=== PATIENT | female | born 1960 | race Caucasian/White ===

== ENCOUNTER 2022-04-17 07:29 | Outpatient (CLI) | payer OTHER ==
[~2022-04-17 07:29] MED LIST: CLONAZEPAM2 MG; PRISTIQ ER50 MG; SEROQUEL50 MG; WELLBUTRIN75 MG
== END 2022-04-17 07:36 | disposition home or self-care (01) ==
LOC: LAB 07:29
PROVIDERS: ATTEND Internal Medicine Hematology & Oncology
DX: D50.8 Other iron deficiency anemias (principal); R79.9 Abnormal finding of blood chemistry, unspecified; I10 Essential (primary) hypertension; R74.02 Elevation of levels of lactic acid dehydrogenase [LDH]; K76.89 Other specified diseases of liver; C56.9 Malignant neoplasm of unspecified ovary; R97.8 Other abnormal tumor markers; R97.1 Elevated cancer antigen 125 [CA 125]; R97.0 Elevated carcinoembryonic antigen [CEA]; C54.1 Malignant neoplasm of endometrium; C78.01 Secondary malignant neoplasm of right lung; C78.02 Secondary malignant neoplasm of left lung; F33.9 Major depressive disorder, recurrent, unspecified; F41.3 Other mixed anxiety disorders

== ENCOUNTER 2022-05-20 04:43 | Inpatient (IN) | payer OTHER ==
[~2022-05-20] VITALS: Ht 167.6 cm; Wt 52.2 kg
[2022-05-20] MEDS ORDERED: [UNRECOGNIZED DRUG - OTHER] (04:54)
--- NOTE | 2022-05-20 04:54 | NUR ---
PTE ALERTA Y ORIENTADA X3 ESFERAS EN AMBULANCIA QUIEN REFIERE DOLOR ABDOMINAL DESDE LAS 7APM.NIEGA VOMITOS NI DIARREAS.PTE REFIERE CANCER DE UTERO METASTIZADO A PULMON.
--- NOTE | 2022-05-20 05:31 | NUR ---
SE LE ORIENTA A PTE SOBRE TRATAMIENTO A SEGUIR, LENA REFIERE ENTENDER. SE LE COLECTA MUESTRAS, SE CANALIZA Y SE ADMINISTRA MEDICAMENTOS MOMO ORDEN MEDICA UTILIZANDO MEDIDAS ASEPTICAS. PENDIENTE CT PO
--- NOTE | 2022-05-20 07:29 | NUR ---
SE RECIBE PTE ALERTA Y ORIENTADA X3 EN CAMA BAJA CON BARANDAS ELEVADAS POR SEGURIDAD, CON BUEN PATRON RESPIRATORIO, CANALIZADA EN PERIFERAL LT CON ANGIO #18 PATENTE. AREA DE VENOPUNCION DARRYL DE EDEMA Y ERITEMA. RECIBIENDO 0.9NSS BAJANDO 175ML/HR. PEND CT CON CONTRASTE PO. SE MANTIENE BAJO OBSERVACION POR CAMBIOS SIGNIFICATIVOS
--- NOTE | 2022-05-20 12:46 | NUR ---
PACIENTE ALERTA Y ORIENTADA X3. SE ADMINISTRAN MEDICAMENTOS MOMO ORDENES MEDICA Y SE OBTIENE MUESTRA MOLECULAR COVID 19.
[2022-05-23] MEDS ORDERED: CLOBETASOL PROP15 G1 (13:24)
[2022-05-23] MEDS ORDERED: LENVIMA1 EAC3 (13:24)
[2022-05-23] MEDS ORDERED: MAGNESIUM OXID500 MG (13:25)
[2022-05-23] MEDS ORDERED: ST. JOSEPH ASPI81 M2 (13:25)
[2022-05-23] MEDS ORDERED: SERTRALINE HCL50 MG (13:25)
[2022-05-23] MEDS ORDERED: CLOTRIMAZOLE-BE15 G1 (13:25)
[2022-05-23] MEDS ORDERED: BUPROPION XL150 MG (13:25)
== END 2022-05-24 17:27 | disposition home or self-care (01) | DRG 445 ==
LOC: ER 04:43 → SEC-K 18:49 → MEDI 05-22 13:48
PROVIDERS: ADMIT Internal Medicine; ATTEND Internal Medicine
PROC: BW21YZZ Computerized Tomography (CT Scan) of Abdomen and Pelvis using Other Contrast (ICD-10-PCS; principal; 2022-05-20)
DX: K81.0 Acute cholecystitis (principal); C78.00 Secondary malignant neoplasm of unspecified lung; K59.09 Other constipation; D63.0 Anemia in neoplastic disease; C54.1 Malignant neoplasm of endometrium; Z20.822 Contact with and (suspected) exposure to COVID-19; I11.0 Hypertensive heart disease with heart failure; I50.9 Heart failure, unspecified; J44.9 Chronic obstructive pulmonary disease, unspecified